=== PATIENT | male | born 1945 | race Caucasian/White ===

== ENCOUNTER 2025-01-05 08:16 | Inpatient (IN) | payer MEDICARE, BC ==
[~2025-01-05] VITALS: Ht 172.7 cm; Wt 68.0 kg
[2025-01-05] MEDS ORDERED: SWABABLE VALVE TRANSFER SET EA MC ONE (08:29)
[2025-01-05] MEDS ORDERED: IV NORMAL SALINE 250 ML IV ONE (08:29)
[2025-01-05] MEDS ORDERED: IOHEXOL 350 100 ML INFUS..BTL ONE (08:29)
[2025-01-05 08:57] LABS: BASOPHILS # (AUTO) 0.1 K/UL (0.0-0.2); EOSINOPHILS # (AUTO) 0.2 K/uL (0.0-0.7); EOSINOPHILS % (AUTO) 3.6 % (0.0-7.0); HEMATOCRIT 34.7 % (36.7-47.1); HEMOGLOBIN 11.6 g/dL (12.5-16.3); LYMPHOCYTES # (AUTO) 0.8 K/uL (0.8-4.8); LYMPHOCYTES % (AUTO) 15.3 % (20.5-51.5); MEAN CORPUSCULAR HEMOGLOBIN 32.3 uug (23.8-33.4); MEAN CORPUSCULAR HGB CONC 33 g/dL (32.5-36.3); MEAN CORPUSCULAR VOLUME 96.4 fL (73.0-96.2); MONOCYTES # (AUTO) 0.6 K/uL (0.1-1.30); MONOCYTES % (AUTO) 11.4 % (0.0-11.0); NEUTROPHILS # (AUTO) 3.7 K/uL (1.8-8.9); NEUTROPHILS % (AUTO) 68.7 % (38.5-71.5); PLATELET COUNT (AUTO) 217 K/uL (152-348); RED CELL DISTRIBUTION WIDTH 13.8 % (12.1-16.2); WHITE BLOOD COUNT (AUTO) 5.3 K/uL (3.6-10.2)
[2025-01-05 08:59] LABS: DIFFERENTIAL COMMENT 1
[2025-01-05 09:08] LABS: CALCIUM 8.3 mg/dL (8.5-10.1); CARBON DIOXIDE 28 mmol/L (21-32); CHLORIDE 106 mmol/L (98-107); CREATININE 1.6 mg/dL (0.6-1.3); GLUCOSE 106 mg/dL (74-106); POTASSIUM 4.6 mmol/L (3.5-5.1); SODIUM SERUM 139 mmol/L (136-145); UREA NITROGEN, BLOOD 26 mg/dL (7-18)
[2025-01-05 09:11] LABS: ACETAMINOPHEN < 10.0 ug/mL (10-30)
[2025-01-05 09:12] LABS: ALANINE AMINOTRANSFERASE 15 U/L (16-63); ALBUMIN 2.7 g/dL (3.4-5.0); ALKALINE PHOSPHATASE 41 U/L (50-136); ASPARTATE AMINOTRANSFERASE 20 U/L (15-37); BILIRUBIN,DIRECT 0.1 mg/dL (0.0-0.2); BILIRUBIN,TOTAL 0.4 mg/dL (0.2-1.0); TOTAL PROTEIN, SERUM 5.8 g/dL (6.4-8.2)
[2025-01-05 09:19] LABS: AMMONIA < 10 umol/L (11-32); ETHANOL < 3 MG/DL (0-10)
[2025-01-05 09:24] LABS: THYROID STIMULATING HORMONE 2.313 mIU/mL (0.358-3.740)
[2025-01-05] MEDS ORDERED: AMIO200T5 PO (09:42)
[2025-01-05] MEDS ORDERED: ROSU20TA32 PO (09:42)
[2025-01-05] MEDS ORDERED: DONE10TA44 PO (09:42)
[2025-01-05] MEDS ORDERED: APIX2.5T PO (09:42)
[2025-01-05 10:37] LABS: *BILIRUBIN,URIN NEGATIVE (NEGATIVE); *BLOOD, URINE NEGATIVE (NEGATIVE); *CLARITY,URINE CLEAR (CLEAR); *COLOR,URINE YELLOW (YELLOW); *KETONES,URINE NEGATIVE (NEGATIVE); *PROTEIN,URINE NEGATIVE (NEGATIVE); *UROBILINOGEN,URINE 0.2 E.U./dl (NORMAL); LEUKOCYTE ESTERASE ,URINE NEGATIVE (NEGATIVE); NITRITE, URINE NEGATIVE (NEGATIVE); UGLUCOSE NEGATIVE (NEGATIVE)
[2025-01-05 11:12] LABS: *AMPHETAMINE, URINE NEGATIVE (NEGATIVE); *BARBITURATE, URINE NEGATIVE (NEGATIVE); *BENZODIAZEPINE, URINE NEGATIVE (NEGATIVE); *CANNABINOID, URINE NEGATIVE (NEGATIVE); *COCCAINE, URINE NEGATIVE (NEGATIVE); *OPIATE, URINE NEGATIVE (NEGATIVE); *PHENCYCLIDINE SCREEN,URINE NEGATIVE (NEGATIVE); FENTANYL, URINE NEGATIVE (NEGATIVE)
[2025-01-05] MEDS ORDERED: ACETAMINOPHEN 325 MG TABLET PO PRN (11:15)
[2025-01-05] MEDS ORDERED: FLUO15CR TP (13:19)
[2025-01-05] MEDS ORDERED: TACR100O TOP (13:19)
[2025-01-05] MEDS ORDERED: FLUT15CR TP (13:20)
[2025-01-05] MEDS: IV NS 1000 ML 1,000 ML IV ONE (15:04)
[2025-01-05] MEDS: BLOOD SUGAR DIAGNOSTIC 1 EACH STRIP VI SCH (15:16)
[2025-01-05] MEDS: APIXABAN 2.5 MG TABLET PO SCH (16:53)
[2025-01-05 19:00] VITALS: BP 115/53; TEMP 98.1; O2SAT 95
[2025-01-05] MEDS: ATORVASTATIN 40 MG TABLET PO SCH (20:11)
[2025-01-06] VITALS: BP 114/49; TEMP 98.2; O2SAT 95
[2025-01-06 04:00] VITALS: BP 128/56; TEMP 98; O2SAT 96
[2025-01-06] MEDS: PANTOPRAZOLE SODIUM 40 MG TABLET.DR PO SCH (06:35)
[2025-01-06 06:48] LABS: CALCIUM 8.8 mg/dL (8.5-10.1); CARBON DIOXIDE 29 mmol/L (21-32); CHLORIDE 107 mmol/L (98-107); CREATININE 1.4 mg/dL (0.6-1.3); GLUCOSE 89 mg/dL (74-106); POTASSIUM 4.3 mmol/L (3.5-5.1); SODIUM SERUM 144 mmol/L (136-145); UREA NITROGEN, BLOOD 20 mg/dL (7-18)
[2025-01-06 06:51] LABS: BASOPHILS % (AUTO) 0.8 % (0.0-2.0); EOSINOPHILS # (AUTO) 0.3 K/uL (0.0-0.7); EOSINOPHILS % (AUTO) 4.6 % (0.0-7.0); HEMATOCRIT 38.2 % (36.7-47.1); HEMOGLOBIN 12.9 g/dL (12.5-16.3); LYMPHOCYTES # (AUTO) 1.1 K/uL (0.8-4.8); MEAN CORPUSCULAR HEMOGLOBIN 32.5 uug (23.8-33.4); MEAN CORPUSCULAR HGB CONC 34 g/dL (32.5-36.3); MEAN CORPUSCULAR VOLUME 96.2 fL (73.0-96.2); MONOCYTES # (AUTO) 0.8 K/uL (0.1-1.30); MONOCYTES % (AUTO) 11.6 % (0.0-11.0); NEUTROPHILS # (AUTO) 4.3 K/uL (1.8-8.9); PLATELET COUNT (AUTO) 237 K/uL (152-348); RED BLOOD CELL COUNT(AUTO) 3.97 MIL/uL (4.06-5.63); RED CELL DISTRIBUTION WIDTH 14.2 % (12.1-16.2); WHITE BLOOD COUNT (AUTO) 6.5 K/uL (3.6-10.2)
[2025-01-06 06:52] LABS: DIFFERENTIAL COMMENT 1
[2025-01-06 07:30] LABS: THYROID STIMULATING HORMONE 2.338 mIU/mL (0.358-3.740)
[2025-01-06 07:52] VITALS: BP_SYST 142; BP_SYST 145; BP_DIAS 64; BP_DIAS 70; TEMP 98; TEMP 98.4; O2SAT 95; O2SAT 99
[2025-01-06] MEDS: ASPIRIN EC 81 MG TABLET.DR PO SCH (08:47)
[2025-01-06] MEDS: DONEPEZIL 10 MG TABLET PO SCH (08:48)
[2025-01-06] MEDS: AMIODARONE HCL 200 MG TABLET PO SCH (08:52)
[2025-01-06] MEDS ORDERED: Medication Not On Formulary EA (Rosuvastatin Calcium 1 TAB) PO SCH (09:00)
[2025-01-06] MEDS ORDERED: CLOPIDOGREL 75 MG TABLET PO SCH (09:00)
[2025-01-06 11:45] VITALS: BP 127/50; TEMP 97.9; O2SAT 97
[2025-01-06 16:03] VITALS: BP 117/52; TEMP 98.1; O2SAT 98
[2025-01-06] MEDS: IV 1/2NS 1000 ML 1,000 ML IV ONE (17:01)
[2025-01-06 20:00] VITALS: BP 134/62; TEMP 98.7; O2SAT 96
[2025-01-06] MEDS: MELATONIN 3 MG TABLET PO PRN (20:27)
[2025-01-07 00:03] VITALS: BP 122/65; TEMP 98.2; O2SAT 97
[2025-01-07 07:01] LABS: CALCIUM 8.8 mg/dL (8.5-10.1); CARBON DIOXIDE 30 mmol/L (21-32); CHLORIDE 107 mmol/L (98-107); CREATININE 1.3 mg/dL (0.6-1.3); GLUCOSE 94 mg/dL (74-106); POTASSIUM 4.7 mmol/L (3.5-5.1); SODIUM SERUM 143 mmol/L (136-145); UREA NITROGEN, BLOOD 19 mg/dL (7-18)
[2025-01-07 07:43] VITALS: BP 140/63; TEMP 98.1; O2SAT 98
[2025-01-07 11:32] VITALS: BP 114/56; TEMP 98.6; O2SAT 98
[2025-01-07 15:21] VITALS: BP 119/60; TEMP 97.9; O2SAT 99
== END 2025-01-07 14:50 | disposition home or self-care (01) | DRG 69 ==
LOC: ER 08:16 → TELE3 11:42
DX: G45.9 Transient cerebral ischemic attack, unspecified (principal); N17.0 Acute kidney failure with tubular necrosis; R29.700 NIHSS score 0; F02.80 Dementia in other diseases classified elsewhere, unspecified severity, without behavioral disturbance, psychotic disturbance, mood disturbance, and anxiety; D53.9 Nutritional anemia, unspecified; I48.91 Unspecified atrial fibrillation; Z79.82 Long term (current) use of aspirin; E78.5 Hyperlipidemia, unspecified; G30.9 Alzheimer's disease, unspecified; I12.9 Hypertensive chronic kidney disease with stage 1 through stage 4 chronic kidney disease, or unspecified chronic kidney disease; N18.9 Chronic kidney disease, unspecified
CPT/HCPCS: 36415; 70450; 70496; 70551; 71045; 76770; 83605; 84443; 84484; 85025; 85730; 86850; 86900; 86901; 87040; 87086; 93307; G0378; G0480; J7040; Q9967